=== PATIENT | male | born 1965 | race Caucasian/White ===

== ENCOUNTER → 2019-11-10 | Outpatient (CLI) | payer SELFPAY ==
--- NOTE | 2019-11-11 19:58 | PCVCIMAG ---
APPROVED REPORT Study performed: 11/10/2019 08:54:29 EXAM: Comprehensive 2D, Doppler, and color-flow Echocardiogram Patient Location: Echo lab Room #: 3Status: routine BSA: 2.22 HR: 70 bpmBP: 122/70 mmHg Rhythm: NSR Other Information Study Quality: Adequate Risk Factors: Cardiac Risk Factors: HTN Indications Dyspnea on Exertion Chest Tightness Paroxysmal SVT 2D Dimensions IVSd: 9.99 (7-11mm)LVOT Diam: 20.00 (18-24mm) LVDd: 42.11 mm PWd: 9.23 (7-11mm)Ascending Ao: 32.17 (22-36mm) LVDs: 28.09 (25-40mm) Left Atrium: 39.19 (27-40mm) Aortic Root: 35.21 mm LV Single Plane 4CH: 57.41 % LV Single Plane 2CH: 57.66 % Biplane EF: 56.9 % Volumes Left Atrial Volume (Systole) Single Plane 4CH: 45.13 mLSingle Plane 2CH: 57.23 mL LA ESV Index: 24.00 mL/m2 Aortic Valve AoV Peak Jake.: 1.20 m/s AO Peak Gr.: 5.74 mmHg Mitral Valve E/A Ratio: 1.0 MV Decel. Time: 315.35 ms MV E Max Jake.: 0.67 m/s MV A Jake.: 0.64 m/s IVRT: 76.12 ms TDI E/Lateral E': 9.57E/Medial E': 11.17 Medial E' Jake.: 0.06 m/s Lateral E' Jake.: 0.07 m/s Pulmonary Valve PV Peak Jake.: 0.92 m/sPV Peak Gr.: 3.36 mmHg Pulmonary Vein P Vein S: 0.76 m/sP Vein A: 0.31 m/s P Vein D: 0.46 m/sP Vein A Dur.: 93.4 msec P Vein S/D Ratio: 1.65 Tricuspid Valve TR Peak Jake.: 2.34 m/sRAP Estimate: 7.00 mmHg TR Peak Gr.: 21.90 mmHg PA Pressure: 29.00 mmHg Left Ventricle The left ventricle is normal size. There is normal LV segmental wall motion. There is normal left ventricular wall thickness. Left ventricular systolic function is normal. The left ventricular ejection fraction is within the normal range. LVEF is 55-60%. Right Ventricle The right ventricle is normal size. The right ventricular systolic function is normal. Atria The left atrium size is normal. The right atrium size is normal. Aortic Valve The aortic valve is normal in structure. No aortic regurgitation is present. There is no aortic valvular stenosis. Mitral Valve The mitral valve is normal in structure. Mild mitral regurgitation. No evidence of mitral valve stenosis. Tricuspid Valve The tricuspid valve is normal in structure. Trace tricuspid regurgitation. Pulmonary artery pressure is 29 mmHg. Pulmonic Valve The pulmonary valve is normal in structure. There is no pulmonic valvular regurgitation. Great Vessels The aortic root is normal in size. The ascending aorta is normal in size. IVC is normal in size and collapses >50% with inspiration. Pericardium There is no pericardial effusion. <Conclusion> The left ventricle is normal size. LVEF is 55-60%. The right ventricle is normal size. The left atrium size is normal. The aortic valve is normal in structure. Mild mitral regurgitation. Trace tricuspid regurgitation. Pulmonary artery pressure is 29 mmHg. The aortic root is normal in size. There is no pericardial effusion.
== END | disposition home or self-care (01) ==
LOC: PCVCIMAG 09:14 → EDBD 09:14
PROVIDERS: ATTEND Internal Medicine
DX: I34.0 Nonrheumatic mitral (valve) insufficiency (principal); I10 Essential (primary) hypertension
CPT/HCPCS: 93306